=== PATIENT | female | born 1970 | race Caucasian/White ===

== ENCOUNTER 2018-03-20 22:04 | Outpatient (CLI) | payer MEDICARE ==
[2018-03-20 22:32] LABS: BASOPHILS # (AUTO) 0.1 10^3/uL (0.0-0.1); EOSINOPHILS # (AUTO) 0.1 10^3/uL (0.0-0.7); EOSINOPHILS % (AUTO) 1.3 %; LYMPHOCYTES # (AUTO) 2.1 10^3/uL (1.5-3.5); LYMPHOCYTES % (AUTO) 29.8 %; MEAN CORPUSCULAR HEMOGLOBIN 31.2 pg (27.0-31.0); MEAN CORPUSCULAR HGB CONC 32.5 g/dL (32.0-36.0); MEAN CORPUSCULAR VOLUME 95.7 fL (81.0-99.0); MEAN PLATELET VOLUME 10.5 fL (7.9-10.8); MONOCYTES # (AUTO) 0.7 10^3/uL (0.0-1.0); MONOCYTES % (AUTO) 9.1 %; NEUTROPHILS # (AUTO) 4.2 10^3/uL (1.5-6.6); NEUTROPHILS % (AUTO) 58.8 %; PLT - PLATELET COUNT 214 10^3/uL (130-450); RED BLOOD COUNT 4.18 10^6/uL (4.20-5.40); WHITE BLOOD COUNT 7.2 x10^3/uL (4.8-10.8)
[2018-03-20 22:39] LABS: CALCIUM 9.5 mg/dL (8.5-10.3); CREATININE 0.7 mg/dL (0.4-1.0)
[2018-03-20 23:16] LABS: PLATELET ESTIMATE, MANUAL NORMAL (130-450,000) (NORMAL); PLATELET MORPHOLOGY 2+ GIANT PLATELETS (NORMAL); RBC MORPHOLOGY (MULTIPLE) NORMAL APPEARANCE (NORMAL)
[2018-03-20 23:44] LABS: BILIRUBIN,URINE NEGATIVE (NEGATIVE); GLUCOSE, URINE (UA) NEGATIVE (NEGATIVE); KETONES,URINE (UA) NEGATIVE (NEGATIVE); LEUKOCYTE ESTERASE, URINE NEGATIVE (NEGATIVE); NITRITE,URINE NEGATIVE (NEGATIVE); OCCULT BLOOD,URINE NEGATIVE (NEGATIVE); PROTEIN,URINE NEGATIVE (NEGATIVE); UROBILINOGEN,URINE 0.2 (NORMAL) E.U./dL (NORMAL)
[2018-03-20 23:52] LABS: CLARITY,URINE CLEAR (CLEAR)
--- NOTE | 2018-03-21 06:28 | Ultrasound Report ---
EXAM: PELVIC ULTRASOUND EXAM DATE: 03/20/2018 11:49 PM. CLINICAL HISTORY: PELVIC AND PERINEAL pain. COMPARISON: None. TECHNIQUE: Realtime transabdominal pelvic scan performed to identify the uterus and adnexa and as an overview of other pelvic structures, followed by transvaginal scan to provide greater detail of the u terus and adnexa, with static image documentation. FINDINGS: Uterus: 9.0 x 3.9 x 4.9 cm, volume 91 cc. Anteverted position. Normal overall size. Masses: Anterior fundal intramural fibroid measuring 3.9 x 2.5 x 4.3 cm. Anterior fundal pedunculated fibroid measuring 1.9 x 2.0 x 1.7 cm. Endometrium: 4 mm. Normal. Cervix: Unremarkable. Right Ovary: 3.4 x 2.6 x 2.5 cm, volume 11.5 cc. Normal echotexture and blood flow. Left Ovary: 2.5 x 2.0 x 2.5 cm, volume 6.5 cc. Normal echotexture and blood flow. Free Fluid: None. Other: None. IMPRESSION: 1. There are 2 uterine fibroids measuring up to 3.9 x 2.5 x 4.3 cm. 2. Otherwise no significant abnormality. [facility] Referring Provider Line: [phone] SITE ID: [id number]
--- NOTE | 2018-03-21 06:28 | Ultrasound Preliminary Report ---
Exam: US PELVIC W/TRANSVAGINAL IMPRESSION: 1. There are 2 uterine fibroids measuring up to 3.9 x 2.5 x 4.3 cm. 2. Otherwise no significant abnormality. [facility] SITE ID: [id number]
== END 2018-03-20 22:05 | disposition home or self-care (01) ==
LOC: DI 22:04
PROVIDERS: ATTEND Specialist
DX: D25.9 Leiomyoma of uterus, unspecified (principal)
CPT/HCPCS: 76830; 76856; 80048; 81001; 81003; 85025

== ENCOUNTER 2018-11-02 09:35 | Emergency (ER) | payer MEDICARE, OTHER ==
[2018-11-02 10:03] VITALS: BP 142/60
--- NOTE | 2018-11-02 11:02 | XRAY Report ---
Reason: right index finger injury Procedure Date: 11/02/2018 Accession Number: [id number] / [id number] Procedure: XR - Finger(s) RT CPT Code: FULL RESULT: EXAM: RIGHT INDEX SECOND DIGIT RADIOGRAPHY EXAM DATE: 11/02/2018 10:27 AM. CLINICAL HISTORY: Right index finger injury. COMPARISON: None. TECHNIQUE: 3 views. FINDINGS: Bones: No fracture or bone lesion. Joints: Normal. No subluxations. Soft Tissues: Normal. No soft tissue swelling. Other: Second metacarpal sesamoids, normal variant. IMPRESSION: No acute process. [facility]
[2018-11-02] MEDS ORDERED: oxyCODONE 5 MG TABLET PO STA (11:53)
[2018-11-02] MEDS ORDERED: INDOMETHACIN 25 MG CAPSULE PO STA (11:53)
--- NOTE | 2018-11-02 12:00 | ED Physician Documentation ---
History of Present Illness - Stated complaint Stated Complaint: FINGER PX - Chief complaint Chief Complaint: Ext Problem - Additonal information Additional information: hx from pt severe pain R 2nd MCP no known trauma fhx gout Review of Systems Constitutional: denies: Fever Musculoskeletal: reports: Extremity pain Immunocompromised: reports: Other (has MS but not on any meds). denies: Immunocompromised PD PAST MEDICAL HISTORY - Past Medical History Past Medical History: No - Present Medications Home Medications: Ambulatory Orders Medication Instructions Recorded Confirmed Indomethacin [Indocin] 25 mg PO BIDWM PRN #20 capsule 11/02/18 - Allergies Allergies/Adverse Reactions: Allergies Allergy/AdvReac Type Severity Reaction Status Date / Time erythromycin base Allergy Unknown Verified 11/02/18 10:03 Sulfa (Sulfonamide Allergy Unknown Verified 11/02/18 10:03 Antibiotics) - Social History Does the pt smoke?: No Smoking Status: Never smoker PD ED PE NORMAL - Vitals Vital signs reviewed: Yes - Cardiac Cardiac: RRR - Respiratory Respiratory: No respiratory distress - Extremities Extremities: Other (R hand s deformity, mild erythema no streaking no open wounds no sig warmth severe TTP and pain with any attempted ROm to 2nd MCP mSV intact (diff to assess strengtrh 2/2 pain)) Results - Vitals Vitals: Vital Signs - 24 hr 11/02/18 10:00 Heart Rate 70 Respiratory 18 Rate Blood Pressure 142/60 H O2 Saturation 99 Oxygen O2 Source Room air - Rads (name of study) finger Radiology: See rad report (neg) Departure - Departure Disposition: 01 Home, Self Care Clinical Impression: Arthralgia Qualifiers: Joint pain location: hand Laterality: right Qualified Code(s): M25.541 - Pain i n joints of right hand Condition: Good Instructions: ED Arthritis Gout Follow-Up: [facility] [Provider Group] Prescriptions: Indomethacin [Indocin] 25 mg PO BIDWM PRN #20 capsule PRN Reason: Pain Comments: I suspect this inflammation is due to gout. The joint is too small for me to aspirate fluid to test for gout crytals. But I suggest you follow up with PMD (I referred your to [facility])to have uric acid testing etc. In the meantime I have prescribed medication to ease the pain and inflammation
== END 2018-11-02 12:23 | disposition home or self-care (01) ==
LOC: ED 09:35
DX: M25.541 Pain in joints of right hand (principal); G35 Multiple sclerosis
CPT/HCPCS: 73140; 99283; A9270